=== PATIENT | female | born 1970 | race Caucasian/White ===

== ENCOUNTER 2023-03-15 16:00 | Outpatient (RCR) | payer OTHER, SELFPAY ==
--- NOTE | 2023-02-04 14:46 | HP.OTEVAL_ITS ---
Patient's Visit Information Visit Information Visit Information: KATIANA HUGHES is a 52 year old F, referred to Occupational Therapy by Dr. John Strange MD, with a diagnosis of right Osteochondrosis of lunate. Date of Evaluation: 01/27/23 Occupational Therapist: Doretha Estrada, ANDREI/Manohar, CHT Subjective Subjective: Thisi 52 year old female was seen for OT eval with dx of a right osteochondrosis of lunate - pt underwent sx on 12/25/22 currently arrives with orthosis on s/p proximal row carpectomy with dorsal interposition flap and posterior interosseous nerve neurectomy. 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 Pain right hand./wrist: Current Pain Intensity: 0 Pain Intensity Range: 4 and 5 ROM Forearm: right Full pronation left WNL right supination N left WNL Wrist: right 15/15 left 70/70 Opposition: Kapandji opposition scale right 4 left 10 ROM Comments: pt demo 2 away from right composite fist Strength Java Flex Developer: right NT left 35# Lateral Pinch: right NT 16# Tripod Pinch: right NT 14# Strength Comments: will test strength of right anesthesiologists' assistant/pinch at later date about week 8 Edema Wrist: right 19.5cm left 17.5 cm Other: MCP right 20 left 17 cm Sensation Sensation Comments: tingling median nerve thumb Quick DASH-Disab of Arm,Shoulder& Hand Quick DASH Score: 51.6650 Goals Goal:100% adherence to protocol: Yes Comment: proximal row carpectomy Goal:Daily scar massage when approriate: Yes Goal:ROM equal to unaffected hand: Yes Comment: ROM of right wrist to 40/35 or greater Goal:Java Flex Developer/Pinch strength at least 75% of unaffected hand: Yes Comment: strengthen when surgeon releases anesthesiologists' assistant strength to 25# as left is 35# Goal:No pain with affected hand use: Yes Goal:Full use of affected hand in daily activities including work: Yes Goal:Decrease scar hypersensitivity: Yes Other Goal: pt will report decrease in tingling sensation to right thumb by 50% in 3 weeks. pt will demo understanding of orthosis use/precautions by end of 1st session. Rehabilitation General Assessment: pt arrives s/p 5 weeks right wrist proximal row carpectomy with dorsal interposition flap and posterior interosseous nerve neurectomy- pt demo with edema- newly healing structures NWB limiting pts ind. use of right UE with ADLs. pt demo need for skilled OT services 1-2x week to improve forearm/wrist and digit ROM to return pt to IND level with her ADLs and IADLs. Today therapist made adj. to clam shell orthosis to increase comfort and use of orthosis- therapist ed. pt in orthosis use and skin care precautions pt demo understanding- Therapist ed. pt on AROM of shoulder-elbow- forearm and gentle short arch wrist - avoiding painalong with tendon glides to improve pts ROM/edema and healing- pt demo understanding and agree to POC. Rehabilitation Potential: Good Anticipated Interventions Anticipated Interventions: A/AAROM/PROM, Edema Control, Triggerpoint Release, Desensitization, Sensory Retraining, Modalities, Orthoses, Joint Protection/Energy Conservation, Ergonomic Education, Education re Diagnosis and Home Program Visit Plan Frequency: 1-2x /Week Duration: 2 Months General Plan: week 4-5 initiate ROM for wrist/forearm in Neutral position cont. shoulder/elbow and digit ROM edema control gentle short arch wrist ROM with forearm in N - instruct pt in NO PROM just AROM ed. pt never force motion to achieve forearm ROM /wrist Week 6-7 wean from orthosis for light daily tasks week 8-10 endurance building for hand with putty/band as long as cleared by surgeon. week 10-12 pt may need neoprene or elastic pre-juan/custom wrist support for few months upon return to daily work tasks. TEXT: Thank you for the opportunity to evaluate your patient. For Medicare and Medicare HMO plans, please review the plan of care and approve it. It will need to be FAXED BACK to us at [phone] for Medicare purposes. Please let me know if there are questions or concerns regarding this plan of care. Physician Signature: Date:
--- NOTE | 2023-07-07 15:14 | HP.OTDCSUM ---
Discharge Summary D/C Summary: It has been my pleasure to treat KATIANA HUGHES under orders from Dr. John Strange MD, for the diagnosis of right Osteochondrosis of lunate for a total of 6 visit(s). Please see the following information for a summary of their discharge status. 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 pt states she has noticed with increase use she swelling will return pt is using compression glove to assist in mtg. swelling- therapist ed. pt on recovery and to listen to her body (stop if she becomes painful) Goals Patient Goals: Decrease Pain, Decrease Swelling/Stiffness, Use Hand/Wrist/Arm Normally Again and Be More Independent in ADLS Goal:100% adherence to protocol: Yes Goal:Daily scar massage when approriate: Yes Goal:ROM equal to unaffected hand: Yes Goal:[employer]/Pinch strength at least 75% of unaffected hand: Yes Goal:No pain with affected hand use: Yes Goal:Full use of affected hand in daily activities including work: Yes Goal:Decrease scar hypersensitivity: Yes Other Goal: pt will report decrease in tingling sensation to right thumb by 50% in 3 weeks. pt will demo understanding of orthosis use/precautions by end of 1st session. Plan Plan: pt to use hand as able edema glove keep swelling down D/C Information d/c sentence: If there are questions or concerns regarding this patient's occupational therapy, please fell free to call me at [phone]. Thank you for the referral of this patient. Sincerely, Doretha Estrada, OTR/L, CHT
== END 2023-03-15 19:00 | disposition home or self-care (01) ==
LOC: OT 16:00
PROVIDERS: Referring Provider Orthopaedic Surgery Hand Surgery; Visit Provider Orthopaedic Surgery Hand Surgery
DX: M92.211 Osteochondrosis (juvenile) of carpal lunate [Kienbock], right hand (principal)
CPT/HCPCS: 97110; 97140; 97166; 97530